=== PATIENT | female | born 1990 | race Caucasian/White ===

== ENCOUNTER 2019-09-09 20:28 | Inpatient (IN) ==
[2019-09-09] MEDS ORDERED: Ringers Solution, Lactated 1,000 ML ONE (22:28)
[2019-09-09] MEDS ORDERED: miSOPROStoL 25 MCG TABLET PO PRN (22:30)
[2019-09-09] MEDS ORDERED: *HR* FentaNYL (PF) 100 MCG/2 ML VIAL IVP PRN (22:30)
[2019-09-09] MEDS ORDERED: Famotidine 20 MG/2 ML VIAL IVP PRN (22:30)
[2019-09-09] MEDS ORDERED: Azithromycin 500 MG in 0.9 % Sodium Chloride 250 ML IVPB ONE (22:30)
[2019-09-09] MEDS ORDERED: Oxytocin 20 units/ LR 1000 mL 20 UNIT/1,000 ML BAG IVC SCH (22:30)
[2019-09-09] MEDS ORDERED: Naloxone 0.4 MG/ML INJ IVP PRN (22:30)
[2019-09-09] MEDS ORDERED: Ondansetron 4 MG/2 ML VIAL IVP PRN (22:30)
[2019-09-09] MEDS ORDERED: Ringers Solution, Lactated 1,000 ML IVC SCH (22:30)
[2019-09-09] MEDS ORDERED: Metoclopramide 10 MG/2 ML VIAL IVP PRN (22:30)
[2019-09-09] MEDS ORDERED: Lidocaine 1% 20 ML MDV INFILT PRN (22:30)
[2019-09-09 23:27] LABS: Amphetamine Screen,Urine Negative ng/mL (Cutoff=1000); Barbiturate Screen,Urine Negative ng/mL (Cutoff=200); Benzodiazepines Screen,Urine Negative ng/mL (Cutoff=200); Cannabinoid Screen,Urine Negative ng/mL (Cutoff = 50); Cocaine Screen,Urine Negative ng/mL (Cutoff= 300); Opiate Screen,Urine Negative ng/mL (Cutoff=300); Phencyclidine Screen,Urine Negative ng/mL (Cutoff=25)
[2019-09-09 23:31] LABS: Basophils % 0.1 %; Eosinophils % 0.1 %; Hematocrit 36.5 % (35.3-44.9); Hemoglobin 12.1 g/dL (11.5-15.4); Immature Granulocytes % 0.4 % (0-4); Lymphocytes # 0.9 K/mcL (0.6-4.6); Lymphocytes % 5.5 %; Mean Corpuscular HGB Conc 33.2 g/dL (31.6-35.5); Mean Corpuscular Hemoglobin 28.1 pg (28.0-33.3); Mean Corpuscular Volume 84.9 fL (83.0-100.0); Mean Platelet Volume 10.8 fL (9.4-12.4); Monocytes # 0.6 K/mcL (0.0-1.3); Monocytes % 3.4 %; Neutrophils # 14.7 K/mcL (1.6-8.9); Platelet Count 210 K/mcL (140-400); Red Cell Distribution Width 16.5 % (11.5-14.5); Segmented Neutrophils % 90.5 %; White Blood Count 16.2 K/mcL (4.3-11.1)
[2019-09-09] MEDS ORDERED: EPHEDrine 50 MG/ML VIAL IVP PRN (23:40)
[2019-09-09] MEDS ORDERED: Epidural Premix (fent/bupiv) 110 ML EP SCH (23:45)
[2019-09-10] MEDS ORDERED: Oxytocin 20 units/ LR 1000 mL 20 UNIT/1,000 ML BAG IVC SCH (07:48)
[2019-09-10] MEDS ORDERED: Benzocaine/Menthol 56 GM AEROSOL SPRAY TP PRN (07:48)
[2019-09-10] MEDS ORDERED: Oxytocin 20 units/ LR 1000 mL 20 UNIT/1,000 ML BAG IVC ONE (07:48)
[2019-09-10] MEDS ORDERED: Rho Immune Globulin 1,500 UNIT SYRINGE IM PRN (07:48)
[2019-09-10] MEDS: Prenatal Vit/FA 1 EACH TABLET PO SCH (08:00)
[2019-09-10] MEDS: Ibuprofen 600 MG TABLET PO PRN ×2 (08:00→15:40)
[2019-09-10] MEDS: Acetaminophen 325 MG TABLET PO PRN ×2 (08:01→20:49)
[2019-09-11] MEDS: Ibuprofen 600 MG TABLET PO PRN ×2 (01:09→08:34)
[2019-09-11 05:31] LABS: Basophils % 0.3 %; Eosinophils # 0.1 K/mcL (0.0-0.6); Hematocrit 31.6 % (35.3-44.9); Immature Granulocytes % 0.5 % (0-4); Lymphocytes % 17.8 %; Mean Corpuscular HGB Conc 33.2 g/dL (31.6-35.5); Mean Corpuscular Hemoglobin 29.2 pg (28.0-33.3); Mean Corpuscular Volume 87.8 fL (83.0-100.0); Mean Platelet Volume 10.3 fL (9.4-12.4); Monocytes # 0.6 K/mcL (0.0-1.3); Monocytes % 4.9 %; Neutrophils # 8.7 K/mcL (1.6-8.9); Platelet Count 165 K/mcL (140-400); Red Cell Distribution Width 16.7 % (11.5-14.5); Segmented Neutrophils % 75.5 %; White Blood Count 11.5 K/mcL (4.3-11.1)
[2019-09-11 05:36] LABS: Hemoglobin 10.5 g/dL (11.5-15.4)
[2019-09-11 08:25] VITALS: BP 124/80
[2019-09-11] MEDS: Prenatal Vit/FA 1 EACH TABLET PO SCH (08:36)
== END 2019-09-11 09:30 | disposition home or self-care (01) | DRG 807 ==
LOC: 1NENULAB → OBSVTOIN 20:28 → 1NENULAB 23:47 → 1NENUPED 09-10 08:28
PROVIDERS: ADMIT Obstetrics & Gynecology; ATTEND Obstetrics & Gynecology